=== PATIENT | male | born 1975 | race Native Hawaiian/Other Pacific Islander ===

== ENCOUNTER 2018-11-13 10:26 | Emergency (ER) | payer BC ==
[~2018-11-13] VITALS: Ht 167.6 cm; Wt 83.9 kg
[2018-11-13 12:33] VITALS: BP 124/75; TEMP 99.7
== END 2018-11-13 12:35 | disposition home or self-care (01) ==
LOC: ED 10:26
DX: L05.01 Pilonidal cyst with abscess (principal)
CPT/HCPCS: 96372; 99283; J1885